=== PATIENT | male | born 1975 ===

== ENCOUNTER 2023-06-14 10:57 | Emergency (ER) | payer OTHER ==
[2023-06-14] MEDS ORDERED: Acetaminophen 325 MG Tab PO ONE (11:44)
[2023-06-14] MEDS ORDERED: Ibuprofen 600 MG Tab PO ONE (11:44)
[2023-06-14 12:23] LABS: CORONAVIRUS COVID-19 NAA NEGATIVE (NEGATIVE); INFLUENZA A NAA NEGATIVE (NEGATIVE); INFLUENZA B NAA NEGATIVE (NEGATIVE); RESPIRATORY SYNCYTIAL VIR NAA NEGATIVE (NEGATIVE)
== END 2023-06-14 12:43 | disposition home or self-care (01) ==
LOC: MW.ED 10:57
DX: J06.9 Acute upper respiratory infection, unspecified (principal)
CPT/HCPCS: 0241U; 99284; A9270; 99283